=== PATIENT | female | born 1950 | race Caucasian/White ===

== ENCOUNTER 2018-05-13 17:40 | Emergency (ER) | payer MEDICARE, MEDICAID ==
[~2018-05-13] VITALS: Ht 152.4 cm; Wt 63.5 kg
[~2018-05-13 17:40] MED LIST: ALBU8.5H8 IH; FLUT1DIS28 INH; LEVA15HF4 IH; LEVO75TA7 PO
--- NOTE | 2018-05-13 17:40 | NUR ---
PT TO ER BED 09 ACCOMPANIED BY C/O WORSENING SOB X 3 DAYS. HX OF ASTHMA. FAMILY STATES INHALER NOT WORKING. DENIES FEVER. GOWEND PLACED ON MONITOR. VSS. AWAITING MD CASEY.
[2018-05-13] MEDS ORDERED: ALBUTEROL FS 2.5 MG/3 ML VIAL.NEB ONE ×2 (18:08→19:35)
[2018-05-13] MEDS ORDERED: IPRATROPIUM NEB FS 0.5 MG/2.5 ML AMPUL.NEB ONE ×2 (18:08→19:35)
--- NOTE | 2018-05-13 18:12 | NUR ---
RADIOLOGY AT BEDSIDE FOR CHEST XRAY.
[2018-05-13 18:18] LABS: BASOPHILS # (AUTO) 0.1 /CMM (0.0-0.2); BASOPHILS % (AUTO) 1.2 % (0.0-2.0); EOSINOPHILS % (AUTO) 5.9 % (0.0-6.0); HEMATOCRIT 48 % (33-45); HEMOGLOBIN 15.6 g/dL (11.5-14.8); LYMPHOCYTES # (AUTO) 2.5 /CMM (0.8-4.8); LYMPHOCYTES % (AUTO) 23.4 % (20.0-44.0); MEAN CORPUSCULAR HGB CONC 33 g/dl (31.0-36.0); MEAN CORPUSCULAR VOLUME 89 fL (82-100); MONOCYTES % (AUTO) 9.4 % (2.0-12.0); NEUTROPHILS # (AUTO) 6.4 /CMM (1.8-8.9); NEUTROPHILS % (AUTO) 60.1 % (43.0-81.0); PLATELET COUNT (AUTO) 304 /CMM (150-450); RED BLOOD CELL COUNT(AUTO) 5.41 MIL/uL (4.0-5.2); WHITE BLOOD COUNT (AUTO) 10.6 K/uL (4.3-11.0)
--- NOTE | 2018-05-13 18:22 | NUR ---
RT AT BEDSIDE FOR BREATHING TREATMENT.
[2018-05-13 18:25] LABS: CALCIUM, SERUM 9.5 mg/dL (8.5-10.1); CARBON DIOXIDE 34 mmol/L (21-32); CHLORIDE 102 mmol/L (98-107); GLUCOSE 110 mg/dL (74-106); POTASSIUM 4.6 mmol/L (3.5-5.1); SODIUM SERUM 139 mmol/L (136-145); UREA NITROGEN, BLOOD 16 mg/dL (7-18)
[2018-05-13] MEDS ORDERED: IPRATROPIUM NEB FS 0.5 MG/2.5 ML AMPUL.NEB NEB ONE ×2 (18:30→19:30)
[2018-05-13] MEDS ORDERED: ALBUTEROL FS 2.5 MG/3 ML VIAL.NEB NEB ONE ×2 (18:30→19:30)
--- NOTE | 2018-05-13 18:31 | NUR ---
DR FRAIRE AT BEDSIDE FOR EVAL.
[2018-05-13 18:37] LABS: B-TYPE NATRIURETIC PEPTIDE 46 PG/ML (0-125)
--- NOTE | 2018-05-13 19:14 | NUR ---
REPORT TO MOI RUIZ FOR JON.
[2018-05-13] MEDS ORDERED: predniSONE 20 MG TABLET PO ONE (19:30)
[2018-05-13] MEDS ORDERED: predniSONE 20 MG TABLET ONE (19:32)
--- NOTE | 2018-05-13 19:38 | NUR ---
RT AT BEDSIDE.
--- NOTE | 2018-05-13 20:41 | NUR ---
MARILU DANIEL AT BEDSIDE FOR RE-EVAL.
--- NOTE | 2018-05-13 20:51 | NUR ---
Patient does not wish to proceed with medical care recommended by Dr. FRAIRE. Patient given information related to possible complications, up to and including , which could occur as a result of leaving the hospital at this time. Patient verbalizes understanding of risks involved due to leaving against medical advice. Patient has signed AMA form. AUTO BODY REPAIRER FIBERGLASS WAS USED.
[2018-05-13 21:05] VITALS: BP 120/78
== END 2018-05-13 21:06 | disposition left against medical advice (07) ==
LOC: ER 17:42
DX: J45.901 Unspecified asthma with (acute) exacerbation (principal); E03.9 Hypothyroidism, unspecified; M19.90 Unspecified osteoarthritis, unspecified site; Z98.890 Other specified postprocedural states; Z79.899 Other long term (current) drug therapy
CPT/HCPCS: 36415; 71045; 80048; 83880; 84484; 85025; 93005; 94640 ×2; 94644; 99285; A4606; J7512

== ENCOUNTER 2020-08-20 10:38 | Inpatient (IN) | payer MEDICARE, OTHER ==
[~2020-08-20] VITALS: Ht 170.2 cm; Wt 66.2 kg
[2020-08-20] MEDS ORDERED: ONDANSETRON HCL/PF 4 MG/2 ML VIAL ONE ×3 (10:49→12:09)
--- NOTE | 2020-08-20 10:50 | NUR ---
bibdaughter, from home, c/o dizziness and nausea vomiting, "feels like the room is spinning". Patient a/ox3, breathing even and unlabored, no sob noted. Needs attended. Kept comfortable. Dr. Swanson at bedside for eval.
--- NOTE | 2020-08-20 10:58 | NUR ---
IV Line established, blood drawn and sent to lab.
[2020-08-20 11:00] LABS: BASOPHILS # (AUTO) 0.1 /CMM (0.0-0.2); BASOPHILS % (AUTO) 1.2 % (0.0-2.0); EOSINOPHILS % (AUTO) 2.5 % (0.0-6.0); HEMATOCRIT 43 % (33-45); HEMOGLOBIN 14.1 g/dL (11.5-14.8); LYMPHOCYTES # (AUTO) 2.7 /CMM (0.8-4.8); LYMPHOCYTES % (AUTO) 28.7 % (20.0-44.0); MEAN CORPUSCULAR HGB CONC 33 g/dl (31.0-36.0); MEAN CORPUSCULAR VOLUME 89 fL (82-100); MONOCYTES # (AUTO) 0.7 /CMM (0.1-1.30); NEUTROPHILS # (AUTO) 5.5 /CMM (1.8-8.9); NEUTROPHILS % (AUTO) 59.6 % (43.0-81.0); PLATELET COUNT (AUTO) 282 /CMM (150-450); RED BLOOD CELL COUNT(AUTO) 4.84 MIL/uL (4.0-5.2); WHITE BLOOD COUNT (AUTO) 9.3 K/uL (4.3-11.0)
[2020-08-20] MEDS ORDERED: methylPREDNISolone SOD SUCC 125 MG/2ML VIAL ONE (11:00)
[2020-08-20] MEDS ORDERED: ALBUTEROL FS 2.5 MG/3 ML VIAL.NEB NEB ONE (11:00)
[2020-08-20] MEDS ORDERED: ONDANSETRON HCL/PF - ER 4 MG/2 ML VIAL IV ONE (11:00)
[2020-08-20] MEDS ORDERED: methylPREDNISolone SOD SUCC 125 MG/2ML VIAL IV ONE (11:00)
[2020-08-20] MEDS ORDERED: IPRATROPIUM NEB FS 0.5 MG/2.5 ML AMPUL.NEB NEB ONE (11:00)
[2020-08-20] MEDS ORDERED: IV NS 0.9% 1,000 ML BAG IV ONE (11:00)
[2020-08-20] MEDS ORDERED: ALBUTEROL FS 2.5 MG/3 ML VIAL.NEB ONE (11:05)
[2020-08-20] MEDS ORDERED: IPRATROPIUM NEB FS 0.5 MG/2.5 ML AMPUL.NEB ONE (11:05)
--- NOTE | 2020-08-20 11:12 | NUR ---
PATIENT TAKEN TO RADIOLOGY
--- NOTE | 2020-08-20 11:20 | NUR ---
CAME BACK FROM CT. BREATHING TX RESUMED.
--- NOTE | 2020-08-20 11:23 | NUR ---
OFFERED A BED ALVARENGA, PATIENT STS SHE'S UNABLE TO GO AT THIS TIME.
[2020-08-20 11:29] LABS: CALCIUM, SERUM 9.2 mg/dL (8.5-10.1); CARBON DIOXIDE 27 mmol/L (21-32); CHLORIDE 104 mmol/L (98-107); GLUCOSE 142 mg/dL (74-106); POTASSIUM 4.1 mmol/L (3.5-5.1); SODIUM SERUM 140 mmol/L (136-145); UREA NITROGEN, BLOOD 20 mg/dL (7-18)
[2020-08-20] MEDS ORDERED: EZET10TA32 PO (11:34)
[2020-08-20] MEDS ORDERED: ALBU18HF2 IH (11:34)
[2020-08-20] MEDS ORDERED: FLUT1BLS IH (11:34)
[2020-08-20 11:40] LABS: ALANINE AMINOTRANSFERASE 22 U/L (12-78); ALBUMIN 3.5 g/dL (3.4-5.0); ALKALINE PHOSPHATASE 78 U/L (46-116); ASPARTATE AMINOTRANSFERASE 21 U/L (15-37); BILIRUBIN,DIRECT 0.1 mg/dL (0.0-0.2); BILIRUBIN,TOTAL 0.3 mg/dL (0.2-1.0); TOTAL PROTEIN, SERUM 7.7 g/dL (6.4-8.2)
[2020-08-20] MEDS ORDERED: MECLIZINE HCL 12.5 MG TABLET PO ONE (12:00)
[2020-08-20] MEDS ORDERED: MECLIZINE HCL 25 MG TABLET ONE (12:04)
--- NOTE | 2020-08-20 12:40 | NUR ---
PATIENT CURRENTLY ON A BEDPAN.
--- NOTE | 2020-08-20 12:45 | NUR ---
COVID SWAB SENT TO LAB.
[2020-08-20] MEDS ORDERED: ONDANSETRON HCL/PF 4 MG/2 ML VIAL IV PRN (12:50)
--- NOTE | 2020-08-20 13:03 | NUR ---
URINE OBTAINED VIA STRAIGHT CATH. URINE SAMPLE SENT TO LAB.
[2020-08-20 13:24] LABS: BILIRUBIN,URINE NEGATIVE (NEGATIVE); COLOR,URINE YELLOW (YELLOW); LEUKOCYTE ESTERASE ,URINE NEGATIVE (NEGATIVE); NITRITE, URINE NEGATIVE (NEGATIVE); PH,URINE 7.5 (5.0-8.0); PROTEIN,URINE TRACE mg/dl (NEGATIVE); UGLUCOSE NEGATIVE (NEGATIVE); UROBILINOGEN,URINE 0.2 EU/dL (0.2)
--- NOTE | 2020-08-20 13:27 | NUR ---
GOING TELE 311.2
--- NOTE | 2020-08-20 13:27 | NUR ---
got bed 311-2
--- NOTE | 2020-08-20 13:39 | NUR ---
negative covid per lab
--- NOTE | 2020-08-20 13:57 | NUR ---
REPORT GIVEN TO ELIZABETH RUIZ FOR JON.
[2020-08-20] MEDS ORDERED: ACETAMINOPHEN 325 MG TABLET PO PRN (14:00)
[2020-08-20] MEDS ORDERED: MAG HYDROX/AL HYDROX/SIMETH 30 ML UDC PO PRN (14:00)
[2020-08-20] MEDS ORDERED: ZOLPIDEM TARTRATE 5 MG TABLET PO PRN (14:00)
[2020-08-20] MEDS ORDERED: ONDANSETRON HCL/PF 4 MG/2 ML VIAL IVP PRN (14:00)
[2020-08-20] MEDS ORDERED: Z GUARD REMEDY 2 OZ OINT TP PRN (14:00)
[2020-08-20] MEDS ORDERED: MORPHINE SULFATE INJ 2 MG/ML DISP.SYRIN IV PRN (14:00)
[2020-08-20] MEDS ORDERED: HYDROCODONE/APAP 5/325MG TABLET PO PRN (14:00)
[2020-08-20] MEDS ORDERED: MAGNESIUM HYDROXIDE 30 ML UDC PO PRN (14:00)
--- NOTE | 2020-08-20 14:10 | NUR ---
PATIENT TAKEN TO RADIOLOGY FOR CTA. IV LINE ESTABLISHED ON LEFT AC G18 IV
--- NOTE | 2020-08-20 14:17 | NUR ---
PATIENT REFUSED THE CTA. EXPLAINED IN FARSI, SHE STILL REFUSED.
--- NOTE | 2020-08-20 14:20 | NUR ---
TELE/RN NOTES RECEIVED REPORT FROM JULES STRICKLAND RN. ADMITTED A FEMALE 70 YEARS OLD WITH A DIAGNOSIS OF VERTIGO.VITAL SIGN TAKEN AND RECORDED, INITIAL ASSESSMENT WAS DONE.PATIENT IN ROOM AIR, NO APPARENT RESPIRATORY DISTRESS NOTED. WILL CONTINUE TO MONITOR.
[2020-08-20] MEDS ORDERED: ALBUTEROL FS 2.5 MG/3 ML VIAL.NEB IH PRN (14:30)
[2020-08-20] MEDS: IV 1/2NS 1000 ML 1,000 ML IV PRN (14:49)
[2020-08-20] MEDS: ENOXAPARIN SODIUM 40 MG/0.4 ML DISP.SYRIN SQ SCH (14:49)
[2020-08-20 14:51] LABS: BACTERIA,URINE Few /HPF (None Seen); RBC,URINE 0-2 /HPF (0-2); WBC,URINE 0-2 /HPF (0-3)
[2020-08-20 14:57] LABS: SQUAMOUS EPITHELIAL CELL,UR Few /HPF (None Seen); URINE AMORPHOUS PHOSPHATES Moderate /HPF (None Seen)
[2020-08-20] MEDS: AMOXICILLIN TRIHYDRATE 250 MG CAPSULE PO SCH ×2 (15:07→22:31)
[2020-08-20 16:00] VITALS: BP 124/64
[2020-08-20] MEDS: MECLIZINE HCL 12.5 MG TABLET PO PRN (18:06)
--- NOTE | 2020-08-20 19:21 | NUR ---
TELE/RN CLOSING NOTES RECEIVED PATIENT ON BED AWAKE ALERT AND ORIENTED X4. PATIENT IN ROOM AIR SATURATING WELL. PATIENT IN NO APPARENT RESPIRATORY DISTRESS NOTED. NO COMPLAINED OF PAIN NOTED AT THIS TIME. TELE MONITOR PLACED READING SINU BROOKLYNN 55 BPM WITH PAC.SEEN AND EXAMINED BY MD WITH ORDERS MADE CARRIED OUT.ALL DUE MEDICATIONS WAS GIVEN. IV ACCESS AT LEFT HAND # 20G PATENT AND INTACT. SAFETY PRECAUTIONS WAS IN PLACED. BED IN LOWEST POSITION AND LOCKED. SIDERAILS UP X2. CALL LIGHT WITHIN REACH. WILL ENDORSED TO BODY SHOP MECHANIC FOR OJN. Addendum: 08/20/20 at 1924 by MAK ZAMORANO RN ERROR
--- NOTE | 2020-08-20 19:24 | NUR ---
TELE/RN CLOSING NOTES RECEIVED PATIENT ON BED AWAKE ALERT AND ORIENTED X2-3. PATIENT IN ROOM AIR SATURATING WELL. PATIENT IN NO APPARENT RESPIRATORY DISTRESS NOTED. NO COMPLAINED OF PAIN NOTED AT THIS TIME. TELE MONITOR PLACED READING SINUS RHYTHM 86 BPM. SEEN AND EXAMINED BY MD WITH ORDERS MADE CARRIED OUT.ALL DUE MEDICATIONS WAS GIVEN. IV ACCESS AT RIGHT HAND # 18G G WITH IV FLUID OF 1/2NS AT 75ML/HR ON AND INFUSING WELL. SAFETY PRECAUTIONS WAS IN PLACED. BED IN LOWEST POSITION AND LOCKED. SIDERAILS UP X2. CALL LIGHT WITHIN REACH. WILL ENDORSED TO TITLE VEHICLE SERVICE ATTENDANT FOR JON
--- NOTE | 2020-08-20 19:30 | NUR ---
RN OPENING NOTE PATIENT IN BED AWAKE, FARSI SPEAKING, UNDERSTANDS SOME [place]. PATIENT IS A/O X 3. PATIENT IS ABLE TO MAKE NEEDS KNOWN. BREATHING EVEN AND UNLABORED, TOLERATES ROOM AIR. DOES NOT COMPLAIN OF NAUSEA AT THIS TIME, GIVEN MECLIZINE AND ZOFRAN RECENTLY. SAFETY MEASURES IN PLACE: BED IN LOCKED AND LOWEST POSITION, CALL LIGHT WITHIN REACH, SIDE RAILS UP, ENCOURAGED PATIENT TO CALL IF IN NEED. WILL MONITOR PATIENT CLOSELY. Addendum: 08/20/20 at 2008 by KINGSTON MULLER RN TELE MONITOR READS SR 81 BPM
[2020-08-20 20:00] VITALS: BP_SYST 102; BP_DIAS 56; BP_DIAS 57
[2020-08-21] VITALS: BP 98/54
--- NOTE | 2020-08-21 03:15 | NUR ---
PATIENT REPORTS BEING ANXIOUS AND A HEADACHE OF 3/10 ON PAIN SCALE. INFORMED DR. ARANDA REGARDING PATIENT'S ANXIETY. NO ORDERS YET.
[2020-08-21] MEDS ORDERED: ALPRAZOLAM 0.25 MG TABLET PO PRN (03:30)
[2020-08-21] MEDS: IV 1/2NS 1000 ML 1,000 ML IV PRN ×2 (03:48→15:52)
[2020-08-21 04:00] VITALS: BP 102/59
[2020-08-21 06:28] LABS: BASOPHILS % (AUTO) 0.2 % (0.0-2.0); HEMATOCRIT 38 % (33-45); HEMOGLOBIN 12.3 g/dL (11.5-14.8); LYMPHOCYTES # (AUTO) 1.3 /CMM (0.8-4.8); LYMPHOCYTES % (AUTO) 12.4 % (20.0-44.0); MEAN CORPUSCULAR HGB CONC 32 g/dl (31.0-36.0); MEAN CORPUSCULAR VOLUME 89 fL (82-100); MONOCYTES # (AUTO) 0.7 /CMM (0.1-1.30); MONOCYTES % (AUTO) 6.7 % (2.0-12.0); NEUTROPHILS # (AUTO) 8.6 /CMM (1.8-8.9); NEUTROPHILS % (AUTO) 80.7 % (43.0-81.0); PLATELET COUNT (AUTO) 253 /CMM (150-450); RED BLOOD CELL COUNT(AUTO) 4.28 MIL/uL (4.0-5.2); WHITE BLOOD COUNT (AUTO) 10.6 K/uL (4.3-11.0)
[2020-08-21 06:48] LABS: CALCIUM, SERUM 8.2 mg/dL (8.5-10.1); CREATININE 0.9 mg/dL (0.6-1.3); MAGNESIUM 2.1 mg/dL (1.8-2.4); PHOSPHORUS 3.2 mg/dL (2.5-4.9); POTASSIUM 4.1 mmol/L (3.5-5.1)
[2020-08-21] MEDS: AMOXICILLIN TRIHYDRATE 250 MG CAPSULE PO SCH ×3 (06:54→22:33)
--- NOTE | 2020-08-21 07:25 | NUR ---
RN CLOSING NOTE PATIENT IN BED SLEEPING, PATIENT IS A/O X 3. PATIENT IS ABLE TO MAKE NEEDS KNOWN. BREATHING EVEN AND UNLABORED, TOLERATES ROOM AIR. DOES NOT COMPLAIN OF NAUSEA AT THIS TIME, GAVE XANAX FOR HER ANXIETY. SAFETY MEASURES IN PLACE: BED IN LOCKED AND LOWEST POSITION, CALL LIGHT WITHIN REACH, SIDE RAILS UP, ENCOURAGED PATIENT TO CALL IF IN NEED. ENDORSED TO DAY SHIFT NURSE FOR JON. Addendum: 08/21/20 at 0745 by KINGSTON MULLER RN PATIENT IS CURRENTLY WEARING HEARING AID.
[2020-08-21] MEDS: LEVOTHYROXINE SODIUM 75 MCG TABLET PO SCH (07:31)
--- NOTE | 2020-08-21 07:37 | NUR ---
TELE/RN OPENING NOTES RECEIVED PATIENT ON BED AWAKE ALERT AND ORIENTED X3. PATIENT IN ROOM AIR SATURATING WELL. PATIENT IN NO APPARENT RESPIRATORY DISTRESS NOTED. NO COMPLAINED OF PAIN NOTED AT THIS TIME. TELE MONITOR IN PLACED READING SINUS BROOKLYNN 50 BPM WITH PAC. WILL CONTINUE TO MONITOR.
[2020-08-21 08:16] VITALS: BP 110/51
[2020-08-21] MEDS: EZETIMIBE 10 MG TABLET PO SCH (08:33)
[2020-08-21] MEDS: MECLIZINE HCL 12.5 MG TABLET PO PRN ×2 (08:33→17:20)
[2020-08-21] MEDS: ENOXAPARIN SODIUM 40 MG/0.4 ML DISP.SYRIN SQ SCH (08:41)
[2020-08-21] MEDS: FLUTICASONE/VILANTEROL 1 EACH BLST.W.DEV IH SCH (08:42)
[2020-08-21] MEDS ORDERED: CT SWABBABLE VALVE TRANS SET 1 EA INFUS.SET MC ONE (13:58)
[2020-08-21] MEDS ORDERED: IOHEXOL-350 100 ML VIAL IV ONE (13:58)
[2020-08-21] MEDS ORDERED: IV NS 0.9% 250 ML IV ONE (13:58)
--- NOTE | 2020-08-21 14:15 | NUR ---
MS/RN NOTES PATIENT REFUSED FOR CTA BRAIN AND CTA CAROTID EXPLAINED THE RISK AND BENEFITS. JADE CALDERON DNP WAS AWARE.
[2020-08-21 16:00] VITALS: BP 101/54
--- NOTE | 2020-08-21 17:30 | NUR ---
MS SARA OPENING NOTES Patient is A&Ox3. No c/o pain or discomfort. Denies n/v or dizziness at this time. Patient states she feels "fine." No signs of distress. Daughter at bedside. Bed alarm on, bed in lowest position. call light within reach. Addendum: 08/21/20 at 2039 by ACOSTA TRACEY RN *correct time is 1929*
--- NOTE | 2020-08-21 18:46 | NUR ---
TELE/RN CLOSING NOTES RECEIVED PATIENT ON BED AWAKE ALERT AND ORIENTED X 3. PATIENT IN ROOM AIR SATURATING WELL. PATIENT IN NO APPARENT RESPIRATORY DISTRESS NOTED. NO COMPLAINED OF PAIN NOTED AT THIS TIME. SEEN AND EXAMINED BY MD WITH ORDERS MADE CARRIED OUT. ALL DUE MEDICATIONS WAS GIVEN. IV ACCESS AT RIGHT HAND # 18G G WITH IV FLUID OF 1/2NS AT 75ML/HR ON AND INFUSING WELL. SAFETY PRECAUTIONS WAS IN PLACED. BED IN LOWEST POSITION AND LOCKED. SIDERAILS UP X2. CALL LIGHT WITHIN REACH. WILL ENDORSED TO MEDICAL SUPERINTENDENT FOR JON
--- NOTE | 2020-08-21 19:30 | NUR ---
MS RN OPENING NOTES Patient is A&Ox3. No c/o pain or discomfort. Denies n/v or dizziness at this time. Patient states she feels "fine." No signs of distress. Daughter at bedside. Bed alarm on, bed in lowest position. call light within reach.
[2020-08-21 20:00] VITALS: BP 115/54
[2020-08-22] MEDS: IV 1/2NS 1000 ML 1,000 ML IV PRN (05:09)
--- NOTE | 2020-08-22 06:00 | NUR ---
MS RN CLOSING NOTES Patient is A&Ox3, VSS. No c/o pain or discomfort. Able to walk to bathroom with assist, denies n/v. Only 1 episode of dizziness, resolved on own without administration of meclizine. Slept well throughout the night but easy to rouse. IVs intact and patent. All safety measures in place. No signs of distress.
[2020-08-22 06:30] LABS: BASOPHILS # (AUTO) 0.1 /CMM (0.0-0.2); BASOPHILS % (AUTO) 1.2 % (0.0-2.0); EOSINOPHILS % (AUTO) 1.5 % (0.0-6.0); HEMATOCRIT 39 % (33-45); HEMOGLOBIN 12.6 g/dL (11.5-14.8); LYMPHOCYTES # (AUTO) 3.3 /CMM (0.8-4.8); LYMPHOCYTES % (AUTO) 36.9 % (20.0-44.0); MEAN CORPUSCULAR HGB CONC 32 g/dl (31.0-36.0); MEAN CORPUSCULAR VOLUME 90 fL (82-100); MONOCYTES # (AUTO) 0.7 /CMM (0.1-1.30); MONOCYTES % (AUTO) 7.9 % (2.0-12.0); NEUTROPHILS # (AUTO) 4.6 /CMM (1.8-8.9); NEUTROPHILS % (AUTO) 52.5 % (43.0-81.0); PLATELET COUNT (AUTO) 218 /CMM (150-450); RED BLOOD CELL COUNT(AUTO) 4.34 MIL/uL (4.0-5.2); WHITE BLOOD COUNT (AUTO) 8.8 K/uL (4.3-11.0)
[2020-08-22 06:48] LABS: POTASSIUM 4.2 mmol/L (3.5-5.1)
[2020-08-22] MEDS: AMOXICILLIN TRIHYDRATE 250 MG CAPSULE PO SCH ×4 (07:00→22:47)
--- NOTE | 2020-08-22 07:30 | NUR ---
RN MS NOTES PT IN BED, AWAKE, ALERT AND ORIENTED, ABLE TO MAKE NEEDS KNOWN, NO COMPLAINT OF PAIN OR ANY DISCOMFORT, NO COMPLAINT OF DIZZINESS OR NAUSEA, TOLERATES CURRENT DIET, IV FLUIDS INFUSING WELL. CALL LIGHT WITHIN REACH, ASSISTED TO BATHROOM NEEDED, NEEDS ATTENDED.
[2020-08-22 08:00] VITALS: BP 126/72
[2020-08-22] MEDS: ENOXAPARIN SODIUM 40 MG/0.4 ML DISP.SYRIN SQ SCH ×2 (09:00→09:08)
[2020-08-22] MEDS: EZETIMIBE 10 MG TABLET PO SCH ×2 (09:00→09:07)
[2020-08-22] MEDS: LEVOTHYROXINE SODIUM 75 MCG TABLET PO SCH (09:07)
[2020-08-22] MEDS: FLUTICASONE/VILANTEROL 1 EACH BLST.W.DEV IH SCH (09:10)
[2020-08-22] MEDS ORDERED: IOHEXOL-350 100 ML VIAL IV ONE (11:45)
[2020-08-22] MEDS ORDERED: CT SWABBABLE VALVE TRANS SET 1 EA INFUS.SET MC ONE (11:46)
[2020-08-22] MEDS ORDERED: IV NS 0.9% 250 ML IV ONE (11:46)
[2020-08-22] MEDS: MECLIZINE HCL 12.5 MG TABLET PO PRN (12:42)
--- NOTE | 2020-08-22 13:05 | NUR ---
RN MS NOTES PT IN BED, RESTING, MECLIZINE GIVEN FOR COMPLAINT OF DIZZINESS, PT ABLE TO COMPLETE CTA OF THE HEAD AND NECK, TOLERATED WELL, DUE MEDS GIVEN ORDERED, NEEDS ATTENDED, IV FLUIDS INFUSING WELL.
[2020-08-22 16:00] VITALS: BP 121/54
--- NOTE | 2020-08-22 17:54 | NUR ---
RN MS NOTES PT'S IV NOTED TO BE INFILTRATED, IV REMOVED, NO BLEEDING NOTED, PT REFUSES IV START, STATED THAT SHE DOES NOT WANT ANYMORE IV'S, DR. MARIA AWARE, NO NEW ORDER GIVEN.
--- NOTE | 2020-08-22 18:19 | NUR ---
RN MS NOTES PT AWAKE, SITTING IN BED, ALERT AND ORIENTED, NO COMPLAINT OF PAIN, NOT IN DISTRESS, ASSISTED TO BATHROOM NEEDED, AMBULATES WITH SLOW AND STEADY GAIT, ALL NEEDS ATTENDED.
--- NOTE | 2020-08-22 19:30 | NUR ---
MS RN OPENING NOTES RECEIVED PATIENT IN BED, AWAKE, A&O X3, NOT IN ANY FORM OF ACUTE DISTRESS NOTED. VS WITHIN NORMAL LIMITS. NO IV ACCESS NOTED, MD AWARE. NO COMPLAINTS OF PAIN AT THIS TIME. NO COMPLAINTS OF DIZZINESS AT THIS TIME. SAFETY PRECAUTIONS OBSERVED: BED ON LOWEST LOCKED POSITION, KEPT SIDE RAILS UP X2. KEPT CALL LIGHT WITHIN EASY REACH. WILL CONTINUE TO MONITOR PATIENT'S CURRENT STATUS.
[2020-08-22 20:00] VITALS: BP 107/51
[2020-08-22 20:20] VITALS: BP 107/51
[2020-08-23] MEDS: AMOXICILLIN TRIHYDRATE 250 MG CAPSULE PO SCH (06:20)
--- NOTE | 2020-08-23 06:36 | NUR ---
MS RN CLOSING NOTES PATIENT IN BED, AWAKE, A&O X3, NOT IN ANY FORM OF ACUTE DISTRESS NOTED. VS WITHIN NORMAL LIMITS. NO IV ACCESS NOTED, PATIENT REFUSED IV REINSERTION, MD AWARE. LEFT HEARING AID IN PLACE. NO COMPLAINTS OF PAIN AT THIS TIME. NO COMPLAINTS OF DIZZINESS AT THIS TIME. SAFETY PRECAUTIONS OBSERVED AND MAINTAINED DURING THE SHIFT: BED ON LOWEST LOCKED POSITION, KEPT SIDE RAILS UP X2. KEPT CALL LIGHT WITHIN EASY REACH. ENDORSED TO MORNING SHIFT NURSE FOR CONTINUITY OF CARE.
[2020-08-23 06:48] LABS: CREATININE 0.9 mg/dL (0.6-1.3); MAGNESIUM 1.9 mg/dL (1.8-2.4); PHOSPHORUS 3.1 mg/dL (2.5-4.9)
--- NOTE | 2020-08-23 07:27 | NUR ---
MSRN OPENING NOTES PATIENT IN BED, AWAKE, A&O X3, NOT IN ANY FORM OF ACUTE DISTRESS NOTED. VS WITHIN NORMAL LIMITS. NO IV ACCESS NOTED, PATIENT REFUSED IV REINSERTION, MD AWARE. LEFT HEARING AID IN PLACE. NO COMPLAINTS OF PAIN AT THIS TIME. NO COMPLAINTS OF DIZZINESS AT THIS TIME. SAFETY PRECAUTIONS OBSERVED AND MAINTAINED DURING THE SHIFT: BED ON LOWEST LOCKED POSITION, KEPT SIDE RAILS UP X2. KEPT CALL LIGHT WITHIN EASY REACH.
[2020-08-23 07:48] LABS: BASOPHILS # (AUTO) 0.1 /CMM (0.0-0.2); BASOPHILS % (AUTO) 1.1 % (0.0-2.0); EOSINOPHILS % (AUTO) 3.5 % (0.0-6.0); HEMATOCRIT 40 % (33-45); LYMPHOCYTES # (AUTO) 3.1 /CMM (0.8-4.8); LYMPHOCYTES % (AUTO) 36.2 % (20.0-44.0); MEAN CORPUSCULAR HGB CONC 32 g/dl (31.0-36.0); MEAN CORPUSCULAR VOLUME 89 fL (82-100); MONOCYTES # (AUTO) 0.8 /CMM (0.1-1.30); MONOCYTES % (AUTO) 8.7 % (2.0-12.0); NEUTROPHILS # (AUTO) 4.4 /CMM (1.8-8.9); NEUTROPHILS % (AUTO) 50.5 % (43.0-81.0); PLATELET COUNT (AUTO) 240 /CMM (150-450); RED BLOOD CELL COUNT(AUTO) 4.51 MIL/uL (4.0-5.2); WHITE BLOOD COUNT (AUTO) 8.7 K/uL (4.3-11.0)
[2020-08-23] MEDS: EZETIMIBE 10 MG TABLET PO SCH (08:45)
[2020-08-23] MEDS: LEVOTHYROXINE SODIUM 75 MCG TABLET PO SCH (08:46)
[2020-08-23] MEDS: ENOXAPARIN SODIUM 40 MG/0.4 ML DISP.SYRIN SQ SCH (08:48)
[2020-08-23] MEDS: FLUTICASONE/VILANTEROL 1 EACH BLST.W.DEV IH SCH (08:48)
[2020-08-23] MEDS ORDERED: AMOX250C PO (11:17)
[2020-08-23] MEDS ORDERED: MECL-225 PO (11:17)
--- NOTE | 2020-08-23 13:39 | NUR ---
DISCHARGE NOTE PT LEFT HOPITAL AT 1300 ACCOMPANIED BY DAUGHTER AT SIDE. IV LINE SAFELY REMOVED, ALL PAPERS GIVEN TO DAUGHTER AND BELONGINGS SHEET SIGNED AND ALL BELONGINGS ACOUNTED FOR. PT REMINDED TO FOLLOW UP WITH NEUROLOGIST OUTPATIENT IN 1-2 WEEKS FOR FOLLOW UP ON CONDITION AND TO TAKE MEDICATIONS ORDERED AND TO FINIH ANTIBIOTICS
== END 2020-08-23 13:15 | disposition home or self-care (01) | DRG 149 ==
LOC: ER 10:50 → TELE 13:41 → MED 08-21 12:04
PROVIDERS: ADMIT Nurse Practitioner Acute Care; ATTEND Registered Nurse
DX: H81.10 Benign paroxysmal vertigo, unspecified ear (principal); E86.0 Dehydration; J32.4 Chronic pansinusitis; H91.92 Unspecified hearing loss, left ear; E03.9 Hypothyroidism, unspecified; J45.909 Unspecified asthma, uncomplicated; Z20.822 Contact with and (suspected) exposure to COVID-19; M19.90 Unspecified osteoarthritis, unspecified site; Z79.51 Long term (current) use of inhaled steroids; Z98.890 Other specified postprocedural states; Z79.899 Other long term (current) drug therapy; R73.9 Hyperglycemia, unspecified
CPT/HCPCS: 36415; 70450-TC; 70496-TC; 70498-TC; 71045-TC; 80048-TC; 80061-TC; 80076-TC; 81001; 82962-TC; 83735-TC; 84100-TC; 84443-TC; 84484-TC; 85025-TC; 87081-TC; C9803; G0378; J1650; J2405; J2930; J3490; J7030; J7050; J7120; J8597; Q9967

== ENCOUNTER 2020-10-19 10:36 | Emergency (ER) | payer MEDICARE, OTHER ==
[~2020-10-19] VITALS: Ht 152.4 cm; Wt 81.6 kg
[~2020-10-19 10:36] MED LIST changes: +ALBU18HF2 IH; -ALBU8.5H8 IH; +AMOX250C PO; +EZET10TA32 PO; +FLUT1BLS IH; -FLUT1DIS28 INH; -LEVA15HF4 IH; +MECL-182 PO
--- NOTE | 2020-10-19 11:02 | NUR ---
The patient bibs for cough, congestion and asthma x3wks. Oxygen saturation in room air is at 96%. Respiration regular. Will continue to monitor the patient.
[2020-10-19 11:25] LABS: BASOPHILS # (AUTO) 0.1 K/uL (0.0-0.2); BASOPHILS % (AUTO) 1.1 % (0.0-2.0); EOSINOPHILS % (AUTO) 4.2 % (0.0-6.0); HEMATOCRIT 40 % (33-45); LYMPHOCYTES # (AUTO) 2.5 K/uL (0.8-4.8); LYMPHOCYTES % (AUTO) 28.4 % (20.0-44.0); MEAN CORPUSCULAR HGB CONC 33 g/dl (31.0-36.0); MEAN CORPUSCULAR VOLUME 89 fL (82-100); MONOCYTES # (AUTO) 0.9 K/uL (0.1-1.30); MONOCYTES % (AUTO) 10.9 % (2.0-12.0); NEUTROPHILS # (AUTO) 4.8 K/uL (1.8-8.9); NEUTROPHILS % (AUTO) 55.4 % (43.0-81.0); PLATELET COUNT (AUTO) 263 K/uL (150-450); RED BLOOD CELL COUNT(AUTO) 4.49 MIL/uL (4.0-5.2); WHITE BLOOD COUNT (AUTO) 8.7 K/uL (4.3-11.0)
[2020-10-19 11:33] LABS: CALCIUM, SERUM 8.5 mg/dL (8.5-10.1); CARBON DIOXIDE 27 mmol/L (21-32); CHLORIDE 105 mmol/L (98-107); CREATININE 0.9 mg/dL (0.6-1.3); GLUCOSE 116 mg/dL (74-106); POTASSIUM 4.2 mmol/L (3.5-5.1); SODIUM SERUM 140 mmol/L (136-145); UREA NITROGEN, BLOOD 14 mg/dL (7-18)
[2020-10-19 11:45] LABS: ALANINE AMINOTRANSFERASE 20 U/L (12-78); ALBUMIN 3.1 g/dL (3.4-5.0); ALKALINE PHOSPHATASE 68 U/L (46-116); ASPARTATE AMINOTRANSFERASE 16 U/L (15-37); BILIRUBIN,DIRECT 0.1 mg/dL (0.0-0.2); BILIRUBIN,TOTAL 0.2 mg/dL (0.2-1.0)
[2020-10-19] MEDS ORDERED: PRED20TA PO (13:46)
[2020-10-19] MEDS ORDERED: BENZ-13 PO (13:46)
[2020-10-19] MEDS ORDERED: ALBU18HF2 IH (13:46)
--- NOTE | 2020-10-19 14:31 | NUR ---
Patient discharged to home in stable condition. Written and verbal after care instructions given. Patient verbalizes understanding of instruction.
[2020-10-19 14:32] VITALS: BP 131/85
== END 2020-10-19 14:32 | disposition home or self-care (01) ==
LOC: ER 10:40
DX: R05 Cough (principal); Z20.822 Contact with and (suspected) exposure to COVID-19; R94.31 Abnormal electrocardiogram [ECG] [EKG]; J45.909 Unspecified asthma, uncomplicated; E03.9 Hypothyroidism, unspecified; Z79.890 Hormone replacement therapy; E78.5 Hyperlipidemia, unspecified; H91.92 Unspecified hearing loss, left ear; M19.90 Unspecified osteoarthritis, unspecified site
CPT/HCPCS: 36415; 71045-TC; 80048-TC; 80076-TC; 83880; 84484-TC; 85025-TC; C9803; U0003

== ENCOUNTER 2021-10-02 07:40 | Emergency (ER) | payer MEDICARE, OTHER ==
[~2021-10-02] VITALS: Ht 152.4 cm; Wt 81.6 kg
[~2021-10-02 07:40] MED LIST changes: -AMOX250C PO; +BENZ-13 PO; +PRED20TA PO
--- NOTE | 2021-10-02 07:58 | NUR ---
DR. UNDERWOOD AT BEDSIDE FOR EVAL.
[2021-10-02] MEDS ORDERED: predniSONE 20 MG TABLET ONE (08:11)
[2021-10-02] MEDS: predniSONE 20 MG TABLET PO ONE (08:12)
--- NOTE | 2021-10-02 08:13 | NUR ---
SALES LEADER AT BEDSIDE FOR XRAY
[2021-10-02] MEDS ORDERED: ALBUTEROL FS 2.5 MG/3 ML VIAL.NEB ONE ×2 (08:16→11:04)
--- NOTE | 2021-10-02 08:20 | NUR ---
COVID SWAB (RAPID AND PCR) AND INFLUENZA SWAB COLLECTED AND SENT TO LAB
--- NOTE | 2021-10-02 08:20 | NUR ---
RT AT BEDSIDE FOR BREATHING TX
[2021-10-02] MEDS: ALBUTEROL FS 2.5 MG/3 ML VIAL.NEB NEB ONE ×2 (08:23→11:08)
[2021-10-02] MEDS ORDERED: ALBU18HF2 INH (10:56)
[2021-10-02] MEDS ORDERED: PRED20TA PO (10:56)
[2021-10-02] MEDS ORDERED: BENZ-13 PO (10:56)
--- NOTE | 2021-10-02 11:15 | NUR ---
RT AT BEDSIDE FOR 2ND BREATHING TX.
[2021-10-02] MEDS ORDERED: ACETAMINOPHEN 325 MG TABLET ONE (11:27)
--- NOTE | 2021-10-02 11:30 | NUR ---
OK FOR PT TO GET TYLENOL 650MG PO PER MD.
[2021-10-02] MEDS: ACETAMINOPHEN 325 MG TABLET PO ONE (11:32)
--- NOTE | 2021-10-02 11:32 | NUR ---
Patient discharged to home in stable condition. Written and verbal after care instructions given. Patient verbalizes understanding of instruction.
[2021-10-02 11:33] VITALS: BP 130/71
== END 2021-10-02 11:33 | disposition home or self-care (01) ==
LOC: ER 07:45
DX: J45.901 Unspecified asthma with (acute) exacerbation (principal); R05.9 Cough, unspecified; Z20.822 Contact with and (suspected) exposure to COVID-19; E78.5 Hyperlipidemia, unspecified; E03.9 Hypothyroidism, unspecified; H91.92 Unspecified hearing loss, left ear; M19.90 Unspecified osteoarthritis, unspecified site
CPT/HCPCS: 99285; 71045; 87426; 87804; 94640 ×2; J7512; C9803; U0003

== ENCOUNTER 2021-11-24 11:32 | Emergency (ER) | payer MEDICARE, OTHER ==
[~2021-11-24] VITALS: Ht 157.5 cm; Wt 63.5 kg
[~2021-11-24 11:32] MED LIST changes: +ALBU18HF2 INH
[2021-11-24 11:48] VITALS: BP 120/68
--- NOTE | 2021-11-24 11:49 | NUR ---
BIBS "I have a really bad earache. Started 2d ago- worse now". AMBULATORY, PLACED ON BED, AAOX4.
--- NOTE | 2021-11-24 11:55 | NUR ---
AT BED SIDE
[2021-11-24] MEDS ORDERED: AMOXICILLIN TRIHYDRATE 250 MG CAPSULE ONE (12:13)
[2021-11-24] MEDS ORDERED: HYDROCODONE/APAP 5/325MG TABLET ONE (12:13)
[2021-11-24] MEDS ORDERED: AMOXICILLIN TRIHYDRATE 500 MG CAPSULE PO ONE (12:30)
[2021-11-24] MEDS ORDERED: HYDROCODONE/APAP 5/325MG TABLET PO ONE (12:30)
[2021-11-24] MEDS ORDERED: AMOX500C2 PO (12:41)
[2021-11-24] MEDS ORDERED: CIPR7.5D9 LEFT EAR (12:41)
[2021-11-24] MEDS ORDERED: HYDR-4275 PO (12:54)
--- NOTE | 2021-11-24 12:55 | NUR ---
Patient discharged to home in stable condition. Written and verbal after care instructions given. Patient verbalizes understanding of instruction.
== END 2021-11-24 12:55 | disposition home or self-care (01) ==
LOC: ER 12:00
DX: H92.02 Otalgia, left ear (principal); H60.92 Unspecified otitis externa, left ear; E78.5 Hyperlipidemia, unspecified; J45.909 Unspecified asthma, uncomplicated; M19.90 Unspecified osteoarthritis, unspecified site; E03.9 Hypothyroidism, unspecified; Z79.899 Other long term (current) drug therapy

== ENCOUNTER 2022-03-04 08:54 | Emergency (ER) | payer MEDICARE, OTHER ==
[~2022-03-04] VITALS: Ht 162.6 cm; Wt 73.7 kg
[~2022-03-04 08:54] MED LIST changes: +AMOX500C2 PO; +CIPR7.5D9 LEFT EAR; +HYDR-4275 PO
--- NOTE | 2022-03-04 09:09 | NUR ---
CAME IN FROM HOME FOR SOB x 3 DAYS Hx OF ASTHMA. PT AMBULATED TO BED WITH STEADY GAIT, AAOX4. O2 SAT AT 93% RA. PLACED ON 2L NC. O2 SAT INCREASED TO 99%. AWAITING MD ORDERS.
--- NOTE | 2022-03-04 09:25 | NUR ---
ESTABLISHED IV LEFT AC 20G, BLOOD DRAWN AND SENT TO LAB. COVID SWAB AND RAPID FLU SWAB COLLECTED AND SENT TO LAB.
[2022-03-04] MEDS ORDERED: methylPREDNISolone SOD SUCC 125 MG/2ML VIAL IV ONE (09:30)
[2022-03-04] MEDS ORDERED: IPRATROPIUM NEB FS 0.5 MG/2.5 ML AMPUL.NEB NEB ONE (09:30)
[2022-03-04] MEDS ORDERED: ALBUTEROL FS 2.5 MG/3 ML VIAL.NEB CONTNEB ONE (09:30)
--- NOTE | 2022-03-04 09:30 | NUR ---
WARE SERVER AT BEDSIDE.
[2022-03-04] MEDS ORDERED: ALBUTEROL FS 2.5 MG/3 ML VIAL.NEB ONE (09:33)
[2022-03-04] MEDS ORDERED: methylPREDNISolone SOD SUCC 125 MG/2ML VIAL ONE (09:39)
[2022-03-04 09:44] LABS: BASOPHILS # (AUTO) 0.1 K/uL (0.0-0.2); BASOPHILS % (AUTO) 1.1 % (0.0-2.0); HEMATOCRIT 41 % (33-45); HEMOGLOBIN 13.6 g/dL (11.5-14.8); LYMPHOCYTES # (AUTO) 1.3 K/uL (0.8-4.8); LYMPHOCYTES % (AUTO) 13.3 % (20.0-44.0); MEAN CORPUSCULAR HGB CONC 33 g/dl (31.0-36.0); MEAN CORPUSCULAR VOLUME 88 fL (82-100); MONOCYTES # (AUTO) 0.2 K/uL (0.1-1.30); MONOCYTES % (AUTO) 2.4 % (2.0-12.0); NEUTROPHILS # (AUTO) 8.1 K/uL (1.8-8.9); NEUTROPHILS % (AUTO) 82.2 % (43.0-81.0); PLATELET COUNT (AUTO) 312 K/uL (150-450); RED BLOOD CELL COUNT(AUTO) 4.69 MIL/uL (4.0-5.2); WHITE BLOOD COUNT (AUTO) 9.9 K/uL (4.3-11.0)
--- NOTE | 2022-03-04 09:45 | NUR ---
RT AT BEDSIDE FOR BREATHING TX.
--- NOTE | 2022-03-04 09:49 | NUR ---
PT REFUSED SOLUMEDROL. PT STATES "IT DID NOT HELP LAST TIME".
--- NOTE | 2022-03-04 09:50 | NUR ---
MADE AWARE REGARDING PT SOLUMEDROL REFUSAL.
--- NOTE | 2022-03-04 09:52 | NUR ---
COVID PCR SWAB COLLECTED AND SENT TO LAB.
[2022-03-04] MEDS ORDERED: PRED20TA PO (10:09)
[2022-03-04] MEDS ORDERED: ALBU18HF2 IH (10:09)
[2022-03-04] MEDS ORDERED: BENZ-13 PO (10:09)
--- NOTE | 2022-03-04 10:22 | NUR ---
CALLED LAB TO FOLLOW UP ON CHEMISTRY RESULTS.
--- NOTE | 2022-03-04 10:30 | NUR ---
CALLED XRAY TO FOLLOW UP ON IMAGING READ AND RESULTS.
--- NOTE | 2022-03-04 10:36 | NUR ---
PT STATES SHE IS "FEELING MUCH BETTER". DENIES SOB. O2 SAT 100% WITH BREATHING TX.
[2022-03-04 10:59] LABS: ALANINE AMINOTRANSFERASE 13 U/L (12-78); ALBUMIN 3.6 g/dL (3.4-5.0); ALKALINE PHOSPHATASE 73 U/L (46-116); ASPARTATE AMINOTRANSFERASE 17 U/L (15-37); BILIRUBIN,DIRECT 0.1 mg/dL (0.0-0.2); BILIRUBIN,TOTAL 0.2 mg/dL (0.2-1.0); CARBON DIOXIDE 29 mmol/L (21-32); CHLORIDE 102 mmol/L (98-107); CREATININE 1.1 mg/dL (0.6-1.3); GLUCOSE 132 mg/dL (74-106); POTASSIUM 4.6 mmol/L (3.5-5.1); SODIUM SERUM 137 mmol/L (136-145); UREA NITROGEN, BLOOD 16 mg/dL (7-18)
--- NOTE | 2022-03-04 12:01 | NUR ---
IV removed. Catheter intact and site benign. Pressure and 4x4 applied to site. No bleeding noted.Patient discharged to home in stable condition. Written and verbal after care instructions given. Patient verbalizes understanding of instruction.
[2022-03-04 12:08] VITALS: BP 130/88
== END 2022-03-04 12:09 | disposition home or self-care (01) ==
LOC: ER 08:58
DX: Z20.822 Contact with and (suspected) exposure to COVID-19 (principal); E03.9 Hypothyroidism, unspecified; Z79.890 Hormone replacement therapy; E78.5 Hyperlipidemia, unspecified; H91.92 Unspecified hearing loss, left ear; I10 Essential (primary) hypertension; M19.90 Unspecified osteoarthritis, unspecified site; Z79.899 Other long term (current) drug therapy
CPT/HCPCS: 99285; 71045; 87426; 93005; 87804; 85025; 80048; 80076; 36415; 84484; 83880; 94640; J2930; C9803; U0003

== ENCOUNTER 2022-06-15 10:12 | Emergency (ER) | payer MEDICARE, OTHER ==
[~2022-06-15] VITALS: Ht 154.9 cm; Wt 71.7 kg
[2022-06-15] MEDS ORDERED: PRED50TA PO (10:38)
[2022-06-15] MEDS ORDERED: ALBU18HF2 INH (10:38)
[2022-06-15] MEDS ORDERED: ALBUTEROL FS 2.5 MG/3 ML VIAL.NEB ONE (10:44)
[2022-06-15] MEDS ORDERED: IPRATROPIUM NEB FS 0.5 MG/2.5 ML AMPUL.NEB ONE (10:44)
[2022-06-15] MEDS ORDERED: ALBUTEROL FS 2.5 MG/3 ML VIAL.NEB NEB ONE (11:00)
[2022-06-15] MEDS ORDERED: IPRATROPIUM NEB FS 0.5 MG/2.5 ML AMPUL.NEB NEB ONE (11:00)
--- NOTE | 2022-06-15 11:00 | NUR ---
BIBS C/O CONGESTION AND COUGH X 2 DAYS. AMBULATORY, PLACED IN BED, BREATHING EVEN AND UNLABORED SATURATING AT 98%RA.
[2022-06-15] MEDS ORDERED: PRED20TA PO ×2 (11:43→11:53)
[2022-06-15] MEDS ORDERED: BENZ-13 PO ×2 (11:43→11:53)
[2022-06-15] MEDS ORDERED: ALBU18HF2 IH ×2 (11:43→11:53)
[2022-06-15] MEDS ORDERED: FLUT1BLS IH ×2 (11:43→11:53)
--- NOTE | 2022-06-15 12:00 | NUR ---
Patient discharged to home in stable condition. Written and verbal after care instructions given. Patient verbalizes understanding of instruction.
[2022-06-15 12:04] VITALS: BP 145/89
[2022-06-17] MEDS ORDERED: PRED50TA PO (09:29)
[2022-06-17] MEDS ORDERED: AZIT1PAC9 PO (09:29)
== END 2022-06-15 12:00 | disposition home or self-care (01) ==
LOC: ER 10:23
DX: J45.901 Unspecified asthma with (acute) exacerbation (principal); I10 Essential (primary) hypertension; E78.5 Hyperlipidemia, unspecified; E03.9 Hypothyroidism, unspecified; Z79.899 Other long term (current) drug therapy; Z98.890 Other specified postprocedural states

== ENCOUNTER 2022-06-16 13:18 | Inpatient (IN) | payer MEDICARE, MEDICAID ==
[~2022-06-16] VITALS: Ht 170.2 cm; Wt 74.8 kg
[~2022-06-16 13:18] MED LIST changes: +PRED50TA PO
--- NOTE | 2022-06-16 13:56 | NUR ---
SWAB FOR COVID19 SENT TO LAB
[2022-06-16] MEDS ORDERED: IPRATROPIUM NEB FS 0.5 MG/2.5 ML AMPUL.NEB ONE (13:59)
[2022-06-16] MEDS ORDERED: ALBUTEROL FS 2.5 MG/3 ML VIAL.NEB ONE (13:59)
[2022-06-16] MEDS ORDERED: IPRATROPIUM NEB FS 0.5 MG/2.5 ML AMPUL.NEB NEB ONE (14:00)
[2022-06-16] MEDS ORDERED: methylPREDNISolone SOD SUCC 125 MG/2ML VIAL IV ONE (14:00)
[2022-06-16] MEDS ORDERED: ALBUTEROL FS 2.5 MG/3 ML VIAL.NEB NEB ONE (14:00)
[2022-06-16] MEDS ORDERED: Magnesium 1GM/D5W 100ML PREMIX 200 ML IV ONE ×2 (14:00→14:03)
[2022-06-16] MEDS ORDERED: methylPREDNISolone SOD SUCC 125 MG/2ML VIAL ONE (14:02)
--- NOTE | 2022-06-16 14:12 | NUR ---
pt in bed seen by . IV started on RH 22g, Blood sent, medications given. RT at bedside
[2022-06-16 14:17] LABS: ABG BASE EXCESS 0.7 mmol/L; ABG PCO2 44.1 mmHg (35.0-45.0); ABG PH 7.389 (7.350-7.450); ABG PO2 58.7 mmHg (75.0-100.0); COHb 0.6 % (0.5-1.5); MetHb 0.2 % (0.0-1.5); O2Hb 90.3 % (94.0-97.0); SITE, ABG Right Radial; VENT MODE, BG RA 21%
[2022-06-16 14:21] LABS: BASOPHILS # (AUTO) 0.1 K/uL (0.0-0.2); BASOPHILS % (AUTO) 0.9 % (0.0-2.0); HEMATOCRIT 41 % (33-45); HEMOGLOBIN 13.6 g/dL (11.5-14.8); LYMPHOCYTES # (AUTO) 1.2 K/uL (0.8-4.8); LYMPHOCYTES % (AUTO) 16.6 % (20.0-44.0); MEAN CORPUSCULAR HGB CONC 33 g/dl (31.0-36.0); MEAN CORPUSCULAR VOLUME 86 fL (82-100); MONOCYTES # (AUTO) 0.3 K/uL (0.1-1.30); MONOCYTES % (AUTO) 3.6 % (2.0-12.0); NEUTROPHILS # (AUTO) 5.8 K/uL (1.8-8.9); NEUTROPHILS % (AUTO) 78.9 % (43.0-81.0); PLATELET COUNT (AUTO) 285 K/uL (150-450); RED BLOOD CELL COUNT(AUTO) 4.77 MIL/uL (4.0-5.2); WHITE BLOOD COUNT (AUTO) 7.3 K/uL (4.3-11.0)
--- NOTE | 2022-06-16 14:26 | NUR ---
SWAB FOR RAPID INFLUENZA SENT TO LAB
[2022-06-16 14:30] LABS: CALCIUM, SERUM 9.2 mg/dL (8.5-10.1); CREATININE 1.1 mg/dL (0.6-1.3); POTASSIUM 5.2 mmol/L (3.5-5.1)
[2022-06-16 14:43] LABS: ALBUMIN 3.6 g/dL (3.4-5.0); BILIRUBIN,DIRECT 0.1 mg/dL (0.0-0.2); BILIRUBIN,TOTAL 0.2 mg/dL (0.2-1.0); TOTAL PROTEIN, SERUM 8.3 g/dL (6.4-8.2)
[2022-06-16] MEDS ORDERED: TEMAZEPAM 15 MG CAPSULE PO PRN (16:00)
[2022-06-16] MEDS ORDERED: ALBUTEROL FS 2.5 MG/0.5 ML VIAL.NEB NEB PRN (16:00)
[2022-06-16] MEDS ORDERED: Z GUARD REMEDY 4 OZ OINT TP PRN (16:00)
[2022-06-16] MEDS ORDERED: MAG HYDROX/AL HYDROX/SIMETH 30 ML UDC PO PRN (16:00)
[2022-06-16] MEDS ORDERED: ONDANSETRON HCL/PF 4 MG/2 ML VIAL IVP PRN (16:00)
[2022-06-16] MEDS ORDERED: HYDROCODONE/APAP 5/325MG TABLET PO PRN (16:00)
[2022-06-16] MEDS ORDERED: IPRATROPIUM NEB FS 0.5 MG/2.5 ML AMPUL.NEB NEB PRN (16:00)
[2022-06-16] MEDS ORDERED: ACETAMINOPHEN 325 MG TABLET PO PRN (16:00)
[2022-06-16] MEDS ORDERED: MAGNESIUM HYDROXIDE 30 ML UDC PO PRN (16:00)
--- NOTE | 2022-06-16 16:33 | NUR ---
attempted to give report to rm 105
--- NOTE | 2022-06-16 16:38 | NUR ---
REPORT GIVEN TO DEMI FOR JON
--- NOTE | 2022-06-16 17:08 | NUR ---
RN INITIAL NOTE RECEIVED PATIENT FROM ED WITH HISTORY OF ASTHMA, HYPERTENSION, VERTIGO,ARTHRITIS AND HYPOTHYROIDISM. ADMITTED FOR RESPIRATORY DISTRESS. PATIENT ON ROOM AIR, ALERT, ORIENTED X4, BATHROOM PRIVILEGES, NO WOUNDS PRESENT, SKIN INTACT, NO REDNESS NOTES. IV ACCES ON RIGHT HAND 22 GAUGE, PATENT AND INTACT. HEAD OF BED ELEVATED TO PATIENTS COMFORT, SIDE RAILS UP AT ALL TIMES X2, CALL LIGHT WITHIN REACH, WILL CONTINUE TO MONITOR, WILL ENDORSE TO ARMORED TRUCK DRIVER NURSE FOR CONTINUING OF CARE.
[2022-06-16 17:23] VITALS: BP 131/86
[2022-06-16] MEDS: LEVOFLOXACIN (250MG) 250 MG TABLET PO SCH (18:44)
[2022-06-16] MEDS: ENOXAPARIN SODIUM 40 MG/0.4 ML DISP.SYRIN SQ SCH ×3 (18:44→21:00)
--- NOTE | 2022-06-16 19:17 | NUR ---
RN NOTE PATIENT REFUSED LOVENOX ADMINISTRATION THREE TIMES. EXPLAINED RISKS AND BENEFITS
--- NOTE | 2022-06-16 19:30 | NUR ---
noc rn opening received patient in bed, a/ox4. no s/s of apparent distress on room air. denies pain at this time. rt. hand #22 g on saline lock. safety in place: bed in lowest, locked position, call light within reach, side rails up X2. will continue with the plan of care for patient.
[2022-06-16] MEDS: IPRATROPIUM NEB FS 0.5 MG/2.5 ML AMPUL.NEB NEB SCH ×3 (19:46→23:48)
[2022-06-16] MEDS: ALBUTEROL FS 2.5 MG/0.5 ML VIAL.NEB NEB SCH ×3 (19:47→23:48)
[2022-06-16 20:00] VITALS: BP 128/67
[2022-06-16] MEDS: methylPREDNISolone SOD SUCC 40 MG/ML VIAL IV SCH (21:00)
--- NOTE | 2022-06-16 21:20 | NUR ---
noc rn note- non-admin Patient refused 2100 of solu-medrol saying she received one in the morning and to quote "No more, in the morning they gave me" and per her, her sone will talk to the doctor tomorrow because her son is a Doctor as well. She called her son and I talked to her son personally since per report the patient's children are to be called for her medications and procedures. Per son and to quote "If she refused, she refused". Hospitalist Tracee Salomon aware. Opened vial of Solu-medrol wasted on proper disposal bin. With SARA Talbert to witness.
[2022-06-17] MEDS: ALBUTEROL FS 2.5 MG/0.5 ML VIAL.NEB NEB SCH ×2 (03:30→07:35)
[2022-06-17] MEDS: IPRATROPIUM NEB FS 0.5 MG/2.5 ML AMPUL.NEB NEB SCH ×2 (03:30→07:35)
[2022-06-17 04:00] VITALS: BP 123/62
[2022-06-17] MEDS: methylPREDNISolone SOD SUCC 40 MG/ML VIAL IV SCH (05:00)
--- NOTE | 2022-06-17 05:02 | NUR ---
noc rn note- non-admin Patient refused 0500 Solumedrol. Per patient and to quote "No, it makes me throw up" and "My son a doctor. My son will talk to the Doctor later".
[2022-06-17 06:51] LABS: BASOPHILS % (AUTO) 0.2 % (0.0-2.0); HEMATOCRIT 40 % (33-45); HEMOGLOBIN 13.1 g/dL (11.5-14.8); LYMPHOCYTES # (AUTO) 1.4 K/uL (0.8-4.8); LYMPHOCYTES % (AUTO) 14.8 % (20.0-44.0); MEAN CORPUSCULAR HGB CONC 32 g/dl (31.0-36.0); MEAN CORPUSCULAR VOLUME 87 fL (82-100); MONOCYTES # (AUTO) 0.6 K/uL (0.1-1.30); MONOCYTES % (AUTO) 6.2 % (2.0-12.0); NEUTROPHILS # (AUTO) 7.5 K/uL (1.8-8.9); NEUTROPHILS % (AUTO) 78.8 % (43.0-81.0); PLATELET COUNT (AUTO) 290 K/uL (150-450); RED BLOOD CELL COUNT(AUTO) 4.64 MIL/uL (4.0-5.2); WHITE BLOOD COUNT (AUTO) 9.6 K/uL (4.3-11.0)
--- NOTE | 2022-06-17 06:52 | NUR ---
noc rn closing note Patient in bed a/ox4, complaining that she did not sleep but not wanting medications. no s/s of apparent distress on room air. denies pain. peripheral line flushing well. all needs attended. all scheduled medications refused by patient, hospitalist aware. safety kept in place the whole shift. will endorse to morning shift rn for continuity of patient care.
[2022-06-17 07:11] LABS: THYROID STIMULATING HORMONE 1.764 uIU/mL (0.358-3.74)
--- NOTE | 2022-06-17 07:15 | NUR ---
DIETARY ASSISTANT OPENING NOTES Received pt awake in bed AOx4 Farsi speaking and [place]. No complaints of pain or discomfort at this time. Pt is on RA and tolerating it well. IV access on 22G patent and intact. HOB elevated to pts comfort. Siderails up at all times. Call light within reach. Will continue to monitor.
[2022-06-17] MEDS ORDERED: PANTOPRAZOLE 40 MG TABLET.DR PO SCH (07:30)
[2022-06-17 07:39] LABS: CALCIUM, SERUM 8.8 mg/dL (8.5-10.1); CREATININE 0.9 mg/dL (0.6-1.3); MAGNESIUM 2.4 mg/dL (1.8-2.4); PHOSPHORUS 3.4 mg/dL (2.5-4.9); POTASSIUM 4.8 mmol/L (3.5-5.1)
[2022-06-17] MEDS: LEVOFLOXACIN (250MG) 250 MG TABLET PO SCH (08:12)
[2022-06-17] MEDS ORDERED: PRED50TA PO (09:29)
[2022-06-17] MEDS ORDERED: AZIT1PAC9 PO (09:29)
[2022-06-17] MEDS ORDERED: MECLIZINE HCL 12.5 MG TABLET PO PRN (09:30)
[2022-06-17] MEDS ORDERED: BENZONATATE 100 MG CAPSULE PO PRN ×2 (09:30)
[2022-06-17] MEDS ORDERED: ALBUTEROL FS 2.5 MG/0.5 ML VIAL.NEB HHN PRN (10:00)
--- NOTE | 2022-06-17 10:22 | NUR ---
HR PAYROLL COORDINATOR NOTES Pt seen by Dr. Connelly and Dr. Dinh with orders to d/c pt as she is medically stable. Daughter Jaelyn made aware. Discharge paperwork and report given and explained to pt. verbalized understanding. Instructed pt that Dr. Connelly wants her to make an appointment with her in a month. Contact information given. IV access taken out.
[2022-06-18] MEDS ORDERED: LEVOTHYROXINE SODIUM 75 MCG TABLET PO SCH (07:30)
[2022-06-18] MEDS ORDERED: EZETIMIBE 10 MG TABLET PO SCH (09:00)
[2022-06-18] MEDS ORDERED: FLUTICASONE/VILANTEROL 1 EACH BLST.W.DEV IH SCH (09:00)
== END 2022-06-17 10:37 | disposition home or self-care (01) | DRG 202 ==
LOC: ER 13:20 → TELE1 17:04 → MEDSG1 17:12
PROVIDERS: ADMIT Nurse Practitioner Acute Care; ATTEND Internal Medicine
DX: J45.901 Unspecified asthma with (acute) exacerbation (principal); J96.01 Acute respiratory failure with hypoxia; E03.9 Hypothyroidism, unspecified; E87.5 Hyperkalemia; E78.5 Hyperlipidemia, unspecified; Z20.822 Contact with and (suspected) exposure to COVID-19; H91.92 Unspecified hearing loss, left ear; R42 Dizziness and giddiness; M19.90 Unspecified osteoarthritis, unspecified site; Z79.51 Long term (current) use of inhaled steroids; Z79.899 Other long term (current) drug therapy; I10 Essential (primary) hypertension; R79.89 Other specified abnormal findings of blood chemistry
CPT/HCPCS: 36415; 36600; 70220-TC; 71045-TC; 80048-TC; 80076-TC; 82803-TC; 83735-TC; 83880; 84100-TC; 84443-TC; 85025-TC; 87081-TC; 94799-TC; C9803; G0378; J1650; J2920; J2930; J3475; J8597

== ENCOUNTER 2022-10-03 07:41 | Emergency (ER) | payer MEDICARE, OTHER ==
[~2022-10-03] VITALS: Ht 170.2 cm; Wt 67.1 kg
[~2022-10-03 07:41] MED LIST changes: -AMOX500C2 PO; +AZIT1PAC9 PO; -CIPR7.5D9 LEFT EAR; -PRED20TA PO
--- NOTE | 2022-10-03 08:00 | NUR ---
PATIENT CAME WITH LEFT SIDE RIB PAIN,H/O FALL ,ALERT AND ORIENTED.ON ROOM AIR,COMFORTABLE AT BED.ATTACHED TO HORSE TRADER.
--- NOTE | 2022-10-03 08:01 | NUR ---
DR HARRIS AT BED SIDE FOR EVAL.
[2022-10-03] MEDS ORDERED: CYCLOBENZAPRINE 10 MG TABLET ONE (08:08)
[2022-10-03] MEDS ORDERED: IBUPROFEN 600 MG TABLET ONE (08:08)
[2022-10-03] MEDS ORDERED: IBUPROFEN 600 MG TABLET PO ONE (08:30)
[2022-10-03] MEDS ORDERED: CYCLOBENZAPRINE 10 MG TABLET PO ONE (08:30)
--- NOTE | 2022-10-03 09:30 | NUR ---
DR HARRIS AT BED SIDE FOR DISCHARGE INSTRUCTIONS TO PATIENT.
[2022-10-03] MEDS ORDERED: DICL100G26 TP (09:32)
[2022-10-03] MEDS ORDERED: ACET-73 PO (09:32)
--- NOTE | 2022-10-03 09:42 | NUR ---
Patient discharged to home in stable condition. Written and verbal after care instructions given. Patient verbalizes understanding of instruction.
[2022-10-03 09:43] VITALS: BP 144/98; TEMP 98.3; O2SAT 95
[2022-10-03] MEDS ORDERED: ACETAMINOPHEN ES 500 MG TABLET ONE (09:47)
--- NOTE | 2022-10-03 09:53 | NUR ---
PATIENT REQUESTED AGAIN PAIN MEDICATION TO DR HARRIS.
[2022-10-03] MEDS ORDERED: ACETAMINOPHEN ES 500 MG TABLET PO ONE (10:00)
== END 2022-10-03 09:44 | disposition home or self-care (01) ==
LOC: ER 07:58
DX: R07.81 Pleurodynia (principal); I10 Essential (primary) hypertension; E03.9 Hypothyroidism, unspecified; J45.909 Unspecified asthma, uncomplicated; Z79.899 Other long term (current) drug therapy; W01.0XXA Fall on same level from slipping, tripping and stumbling without subsequent striking against object, initial encounter; Y93.89 Activity, other specified; Y92.098 Other place in other non-institutional residence as the place of occurrence of the external cause; Y99.8 Other external cause status
CPT/HCPCS: 71100-TC

== ENCOUNTER 2023-01-08 10:39 | Emergency (ER) | payer MEDICARE, OTHER ==
[~2023-01-08] VITALS: Ht 165.1 cm; Wt 64.9 kg
[~2023-01-08 10:39] MED LIST changes: +ACET-73 PO; +DICL100G26 TP
[2023-01-08] MEDS ORDERED: KETOROLAC TROMETHAMINE 15 MG/ML VIAL ONE (11:47)
[2023-01-08] MEDS ORDERED: KETOROLAC TROMETHAMINE INJ 30 MG/ML VIAL IV ONE (12:00)
[2023-01-08] MEDS ORDERED: IV NS 0.9% 1,000 ML BAG IV ONE (12:00)
[2023-01-08 12:11] LABS: BASOPHILS # (AUTO) 0.1 K/uL (0.0-0.2); BASOPHILS % (AUTO) 1.1 % (0.0-2.0); EOSINOPHILS % (AUTO) 0.3 % (0.0-6.0); HEMATOCRIT 40 % (33-45); HEMOGLOBIN 13.3 g/dL (11.5-14.8); LYMPHOCYTES # (AUTO) 1.2 K/uL (0.8-4.8); LYMPHOCYTES % (AUTO) 23.6 % (20.0-44.0); MEAN CORPUSCULAR HEMOGLOBIN 29 PG (26.0-33.0); MEAN CORPUSCULAR HGB CONC 33 g/dl (31.0-36.0); MEAN CORPUSCULAR VOLUME 87 fL (82-100); MONOCYTES % (AUTO) 19.6 % (2.0-12.0); NEUTROPHILS # (AUTO) 2.9 K/uL (1.8-8.9); NEUTROPHILS % (AUTO) 55.4 % (43.0-81.0); PLATELET COUNT (AUTO) 220 K/uL (150-450); RED BLOOD CELL COUNT(AUTO) 4.62 MIL/uL (4.0-5.2); WHITE BLOOD COUNT (AUTO) 5.2 K/uL (4.3-11.0)
[2023-01-08 12:25] LABS: ALANINE AMINOTRANSFERASE 39 U/L (12-78); ALBUMIN 3.2 g/dL (3.4-5.0); ALKALINE PHOSPHATASE 69 U/L (46-116); ASPARTATE AMINOTRANSFERASE 34 U/L (15-37); BILIRUBIN,TOTAL 0.2 mg/dL (0.2-1.0); CALCIUM, SERUM 8.8 mg/dL (8.5-10.1); CARBON DIOXIDE 29 mmol/L (21-32); CHLORIDE 101 mmol/L (98-107); CREATININE 1.2 mg/dL (0.6-1.3); GLUCOSE 99 mg/dL (74-106); POTASSIUM 4.4 mmol/L (3.5-5.1); SODIUM SERUM 137 mmol/L (136-145); TOTAL PROTEIN, SERUM 7.2 g/dL (6.4-8.2); UREA NITROGEN, BLOOD 25 mg/dL (7-18)
[2023-01-08 12:33] LABS: BILIRUBIN,DIRECT < 0.1 mg/dL (0.0-0.2)
[2023-01-08] MEDS ORDERED: ALBUTEROL FS 2.5 MG/3 ML VIAL.NEB NEB ONE (13:30)
[2023-01-08] MEDS ORDERED: IPRATROPIUM NEB FS 0.5 MG/2.5 ML AMPUL.NEB NEB ONE (13:30)
[2023-01-08] MEDS ORDERED: ALBUTEROL FS 2.5 MG/3 ML VIAL.NEB ONE (13:43)
[2023-01-08] MEDS ORDERED: IPRATROPIUM NEB FS 0.5 MG/2.5 ML AMPUL.NEB ONE (13:43)
[2023-01-08 13:48] VITALS: O2SAT 92
[2023-01-08 14:03] VITALS: O2SAT 99
[2023-01-08] MEDS ORDERED: ACET-868 PO (14:10)
[2023-01-08] MEDS ORDERED: ALBU18HF2 INH (14:10)
[2023-01-08] MEDS ORDERED: IBUP-1953 PO (14:10)
[2023-01-08 15:41] VITALS: BP 125/70; TEMP 99.1; O2SAT 98
[2023-01-08 16:31] LABS: EOSINOPHILS % (MANUAL) 1 % (0-4); LYMPHOCYTES % (MANUAL) 25 % (16-48); MONOCYTES % (MANUAL) 19 % (0-11.0); NEUTROPHILS % (MANUAL) 55 (42-76); PLATELET ESTIMATE ADEQUATE
== END 2023-01-08 14:50 | disposition home or self-care (01) ==
LOC: ER 10:45
DX: U07.1 COVID-19 (principal); I10 Essential (primary) hypertension; E03.9 Hypothyroidism, unspecified; E78.5 Hyperlipidemia, unspecified; J45.909 Unspecified asthma, uncomplicated; Z79.899 Other long term (current) drug therapy; Z98.890 Other specified postprocedural states
CPT/HCPCS: 99285; 96374; 71045; 96361; 87426; 93005 ×2; 85025; 80048; 80076; 36415; 94640; 85007; J7030; J1885; C9803

== ENCOUNTER 2024-03-09 08:27 | Emergency (ER) | payer MEDICARE, OTHER ==
[~2024-03-09] VITALS: Ht 157.5 cm; Wt 65.8 kg
[~2024-03-09 08:27] MED LIST changes: +ACET-868 PO; +IBUP-1953 PO
[2024-03-09 08:51] VITALS: TEMP 97.9
[2024-03-09] MEDS: IV NS 0.9% 1,000 ML BAG IV ONE (09:28)
[2024-03-09 09:37] LABS: BASOPHILS # (AUTO) 0.1 K/uL (0.0-0.2); BASOPHILS % (AUTO) 1.6 % (0.0-2.0); EOSINOPHILS # (AUTO) 0.6 K/uL (0.0-0.7); EOSINOPHILS % (AUTO) 8.8 % (0.0-6.0); HEMATOCRIT 44 % (33-45); HEMOGLOBIN 14.1 g/dL (11.5-14.8); LYMPHOCYTES % (AUTO) 14.8 % (20.0-44.0); MEAN CORPUSCULAR HEMOGLOBIN 29 PG (26.0-33.0); MEAN CORPUSCULAR HGB CONC 32 g/dl (31.0-36.0); MEAN CORPUSCULAR VOLUME 89 fL (82-100); MONOCYTES # (AUTO) 0.6 K/uL (0.1-1.30); MONOCYTES % (AUTO) 9.5 % (2.0-12.0); NEUTROPHILS # (AUTO) 4.3 K/uL (1.8-8.9); NEUTROPHILS % (AUTO) 65.3 % (43.0-81.0); PLATELET COUNT (AUTO) 250 K/uL (150-450); RED BLOOD CELL COUNT(AUTO) 4.89 MIL/uL (4.0-5.2); RED CELL DISTRIBUTION WIDTH 13.9 % (11.5-15.0); WHITE BLOOD COUNT (AUTO) 6.6 K/uL (4.3-11.0)
[2024-03-09] MEDS ORDERED: ONDANSETRON HCL/PF 4 MG/2 ML VIAL ONE (09:40)
[2024-03-09] MEDS: ONDANSETRON HCL/PF 4 MG/2 ML VIAL IVP ONE (09:44)
[2024-03-09 09:51] LABS: CARBON DIOXIDE 31 mmol/L (21-32); CHLORIDE 101 mmol/L (98-107); GLUCOSE 122 mg/dL (74-106); POTASSIUM 4.6 mmol/L (3.5-5.1); SODIUM SERUM 136 mmol/L (136-145); UREA NITROGEN, BLOOD 13 mg/dL (7-18)
[2024-03-09 09:56] LABS: ALANINE AMINOTRANSFERASE 17 U/L (12-78); ALBUMIN 3.5 g/dL (3.4-5.0); ALKALINE PHOSPHATASE 84 U/L (46-116); ASPARTATE AMINOTRANSFERASE 16 U/L (15-37); BILIRUBIN,DIRECT 0.1 mg/dL (0.0-0.2); BILIRUBIN,TOTAL 0.2 mg/dL (0.2-1.0); LIPASE 78 U/L (16-77); TOTAL PROTEIN, SERUM 7.8 g/dL (6.4-8.2)
[2024-03-09] MEDS ORDERED: ONDA4TAB5 PO (11:13)
[2024-03-09] MEDS ORDERED: MECLIZINE HCL 25 MG TABLET ONE (11:57)
[2024-03-09] MEDS: MECLIZINE HCL 12.5 MG TABLET PO ONE (12:00)
[2024-03-09] MEDS ORDERED: MECL-182 PO (12:20)
[2024-03-09 13:05] VITALS: BP 135/70; O2SAT 99
== END 2024-03-09 12:50 | disposition home or self-care (01) ==
LOC: ER 08:48
DX: B34.9 Viral infection, unspecified (principal); I10 Essential (primary) hypertension; E03.9 Hypothyroidism, unspecified; E78.5 Hyperlipidemia, unspecified; I44.0 Atrioventricular block, first degree; J45.909 Unspecified asthma, uncomplicated; M19.90 Unspecified osteoarthritis, unspecified site; Z20.822 Contact with and (suspected) exposure to COVID-19; Z79.51 Long term (current) use of inhaled steroids; Z79.52 Long term (current) use of systemic steroids
CPT/HCPCS: 99285; 96374; 71045; 87426; 93005; 87804 ×2; 85025; 80048; 83690; 80076; 36415; 84484; 82962; J8597; J2405

== ENCOUNTER 2024-06-19 16:26 | Emergency (ER) | payer MEDICARE, OTHER ==
[~2024-06-19] VITALS: Ht 162.6 cm; Wt 65.8 kg
[~2024-06-19 16:26] MED LIST changes: +ONDA4TAB5 PO
[2024-06-19 16:32] VITALS: BP 149/79; TEMP 97.4
[2024-06-19] MEDS ORDERED: OFLO5DRO5 LEFT EAR (17:03)
[2024-06-19] MEDS: IPRATROPIUM NEB FS 0.5 MG/2.5 ML AMPUL.NEB NEB ONE (17:18)
[2024-06-19] MEDS: ALBUTEROL FS 2.5 MG/3 ML VIAL.NEB NEB ONE (17:18)
[2024-06-19 17:20] VITALS: O2SAT 95
[2024-06-19] MEDS ORDERED: ALBUTEROL FS 2.5 MG/3 ML VIAL.NEB ONE (17:23)
[2024-06-19] MEDS ORDERED: IPRATROPIUM NEB FS 0.5 MG/2.5 ML AMPUL.NEB ONE (17:24)
[2024-06-19 17:59] VITALS: O2SAT 97
[2024-06-19] MEDS: OFLOXACIN OTIC SOLN 5 ML BOTTLE LEFT EAR ONE (18:10)
[2024-06-19 19:02] VITALS: O2SAT 97
== END 2024-06-19 19:03 | disposition home or self-care (01) ==
LOC: ER 16:26
DX: H92.02 Otalgia, left ear (principal); E03.9 Hypothyroidism, unspecified; E78.5 Hyperlipidemia, unspecified; I10 Essential (primary) hypertension; J45.909 Unspecified asthma, uncomplicated; M19.90 Unspecified osteoarthritis, unspecified site; Z79.51 Long term (current) use of inhaled steroids; Z79.52 Long term (current) use of systemic steroids

== ENCOUNTER 2024-09-27 14:06 | Emergency (ER) | payer MEDICARE, OTHER ==
[~2024-09-27] VITALS: Ht 162.6 cm; Wt 65.8 kg
[~2024-09-27 14:06] MED LIST changes: +OFLO5DRO5 LEFT EAR
[2024-09-27 14:45] VITALS: BP 134/62; TEMP 98.1
[2024-09-27] MEDS ORDERED: AMOX-430 PO (15:52)
[2024-09-27] MEDS ORDERED: CIPR7.5D9 RIGHT EAR (15:52)
[2024-09-27] MEDS ORDERED: ACET-73 PO (15:55)
[2024-09-27] MEDS ORDERED: IBUP-1490 PO (15:55)
[2024-09-27] MEDS ORDERED: IBUPROFEN 600 MG TABLET ONE (16:00)
[2024-09-27] MEDS ORDERED: ACETAMINOPHEN ES 500 MG TABLET ONE (16:00)
[2024-09-27] MEDS ORDERED: AMOX/CLAVULANATE 875 MG TABLET ONE (16:00)
[2024-09-27] MEDS: ACETAMINOPHEN ES 500 MG TABLET PO ONE (16:03)
[2024-09-27] MEDS: IBUPROFEN 600 MG TABLET PO ONE (16:03)
[2024-09-27] MEDS: AMOX/CLAVULANATE 875 MG TABLET PO ONE (16:03)
[2024-09-27 16:25] VITALS: O2SAT 98
== END 2024-09-27 16:15 | disposition home or self-care (01) ==
LOC: ER 14:22
DX: H92.01 Otalgia, right ear (principal); I10 Essential (primary) hypertension; E03.9 Hypothyroidism, unspecified; E78.5 Hyperlipidemia, unspecified; J45.909 Unspecified asthma, uncomplicated; M19.90 Unspecified osteoarthritis, unspecified site; Z79.51 Long term (current) use of inhaled steroids; Z79.52 Long term (current) use of systemic steroids

== ENCOUNTER 2025-01-19 22:33 | Emergency (ER) | payer MEDICARE, OTHER ==
[~2025-01-19] VITALS: Ht 160 cm; Wt 79.4 kg
[~2025-01-19 22:33] MED LIST changes: +AMOX-430 PO; +CIPR7.5D9 RIGHT EAR; +IBUP-1490 PO
[2025-01-19] MEDS ORDERED: IBUPROFEN 400 MG TABLET ONE (23:17)
[2025-01-19] MEDS: IBUPROFEN 400 MG TABLET PO ONE (23:18)
[2025-01-19 23:28] VITALS: O2SAT 92
[2025-01-19] MEDS: ALBUTEROL FS 2.5 MG/0.5 ML VIAL.NEB NEB ONE (23:28)
[2025-01-19 23:30] LABS: PLATELET COUNT (AUTO) 305 K/uL (150-450); RED BLOOD CELL COUNT(AUTO) 4.66 MIL/uL (4.0-5.2); RED CELL DISTRIBUTION WIDTH 13.6 % (11.5-15.0); WHITE BLOOD COUNT (AUTO) 11.7 K/uL (4.3-11.0)
[2025-01-19] MEDS ORDERED: ALBUTEROL FS 2.5 MG/0.5 ML VIAL.NEB ONE (23:37)
[2025-01-19 23:40] LABS: CALCIUM, SERUM 9.0 mg/dL (8.5-10.1); CREATININE 1.0 mg/dL (0.6-1.3); SODIUM SERUM 137.0 mmol/L (136-145); UREA NITROGEN, BLOOD 18.0 mg/dL (7-18)
[2025-01-19 23:41] VITALS: O2SAT 95
[2025-01-19 23:44] LABS: INR 1.01 (0.91-1.10)
[2025-01-20 01:01] VITALS: BP 139/88; TEMP 98.5; O2SAT 97
== END 2025-01-20 01:02 | disposition home or self-care (01) ==
LOC: ER 22:36
DX: J45.901 Unspecified asthma with (acute) exacerbation (principal); I11.9 Hypertensive heart disease without heart failure; E78.5 Hyperlipidemia, unspecified; R51.9 Headache, unspecified; E03.9 Hypothyroidism, unspecified; M19.90 Unspecified osteoarthritis, unspecified site; Z79.51 Long term (current) use of inhaled steroids; Z79.52 Long term (current) use of systemic steroids; Z79.891 Long term (current) use of opiate analgesic; Z86.2 Personal history of diseases of the blood and blood-forming organs and certain disorders involving the immune mechanism
CPT/HCPCS: 36415; 70450-TC; 71045-TC; 80048-TC; 85025-TC; 85730-TC